=== PATIENT | female | born 1995 | race Two or more races ===

== ENCOUNTER 2024-10-26 20:40 | Emergency (ER) | payer OTHER ==
[~2024-10-26] VITALS: Ht 152.4 cm; Wt 56.7 kg
[2024-10-26] MEDS ORDERED: ELVITEG/COB/EMTRI/TENOFO DISOP 1 UDTAB TABLET PO ONE (21:33)
[2024-10-26] MEDS ORDERED: METROnidazole 500 MG TABLET (vss) PO ONE (21:33)
[2024-10-26] MEDS ORDERED: CEFTRIAXONE SODIUM 500 MG VIAL IM STA (21:39)
[2024-10-26] MEDS ORDERED: FF) NORGESTREL-ETHINYL ESTRADIOL TAB PO STA (21:48)
[2024-10-26] MEDS ORDERED: DOXYCYCLINE HYCLATE 100MG IV STA (21:49)
[2024-10-26] MEDS ORDERED: ELVITEG/COB/EMTRI/TENOFO DISOP 1 UDTAB TABLET PO STA (21:50)
[2024-10-26 23:19] LABS: URINE APPEARANCE Clear; URINE BILIRRUBIN Negative (NEGATIVE); URINE BLOOD Negative; URINE COLOR Yellow; URINE GLUCOSE Negative (NEGATIVE); URINE KETONE Negative (NEGATIVE); URINE LEUKOCYTE Negative; URINE NITRATE Negative; URINE PROTEIN Negative (NEGATIVE); URINE UROBILINOGEN 0.2 E.U./dl
[2024-10-26 23:22] LABS: URINE BACTERIA 1130.0 uL (0.0-1933); URINE EPITHELIAL CELLS 8.6 uL (0.0-38.8); URINE WBC 10.1 uL (0.0-23.2)
[2024-10-26 23:28] LABS: URINE CAST 0.00 uL (0.0-1.40); URINE RBC 0.8 uL (0.0-20.8)
[2024-10-26 23:34] LABS: COVID-19 AG NEGATIVE (NEGATIVE)
[2024-10-26 23:35] LABS: COCAINE NEGATIVE (NEGATIVE); METHADONE NEGATIVE (NEGATIVE); OPIATES NEGATIVE (NEGATIVE); THC ( Cannabinoids) NEGATIVE (NEGATIVE)
[2024-10-26 23:36] LABS: BASO % 0.7 % (0.1-1.2); EOS # 0.47 (0.04-0.54); EOS % 5.7 % (0.7-7.0); LYMPH # 3.39 (1.18-3.74); LYMPH % 41.0 % (19.3-53.1); MEAN PLATELET VOLUME 10.00 fl (9.4-12.4); MONO # 0.49 (0.24-0.82); MONO % 5.9 % (4.7-12.5); NEUT # 3.84 (1.56-6.13); NEUT % 46.5 % (34.0-71.1); RED CELL DISTRIBUTION WIDTH 14.6 % (11.6-14.4)
[2024-10-26 23:53] LABS: BUN CREA RATIO 16 (7.0-25.0); CREATININE SERUM 0.69 mg/dL (0.55-1.02); GFR 100.59; GLUCOSE FASTING 90 mg/dL (65-100); OSMOLALITY SERUM 282 MOSM/KG (275-295)
[2024-10-26 23:55] LABS: HCG QUANTITATIVE < 1 mUI/mL (1-3)
[2024-10-27 02:14] VITALS: BP 129/78; O2SAT 100
== END 2024-10-27 02:14 | disposition home or self-care (01) ==
LOC: ER 20:40
PROVIDERS: Emergency Medicine
DX: T76.21XA Adult sexual abuse, suspected, initial encounter (principal); Z20.822 Contact with and (suspected) exposure to COVID-19